=== PATIENT | female | born 1995 | race Caucasian/White ===

== ENCOUNTER 2021-08-24 14:40 | Inpatient (IN) | payer OTHER ==
[~2021-08-24] VITALS: Ht 162.6 cm; Wt 95.3 kg
[~2021-08-24 14:40] MED LIST: COLACE 100MG C100 MG PO; FEROSUL325 MG PO; IBUPROFEN600 MG PO; LORTAB 5-325 M1 EACH PO; PRENATAL VITAM1 EAC6 PO
[2021-08-24] MEDS ORDERED: OMEPRAZOLE20 MG PO (15:46)
[2021-08-24] MEDS ORDERED: PRENATAL TABLE1 EAC1 PO (15:48)
[2021-08-24 15:57] LABS: HEMOGLOBIN 10.7 gm/dl (12.3-15.3); RED BLOOD COUNT 4.46 M/UL (4.00-5.10); WHITE BLOOD COUNT 13.1 K/UL (4.5-11.0)
[2021-08-24] MEDS ORDERED: IBUPROFEN800 MG PO (17:36)
[2021-08-24] MEDS ORDERED: HEMOCYTE324 MG PO (17:36)
[2021-08-24] MEDS ORDERED: COLACE100 MG PO (17:36)
[2021-08-25 07:13] LABS: HEMOGLOBIN 8.9 gm/dl (12.3-15.3)
== END 2021-08-26 15:28 | disposition home or self-care (01) | DRG 806 ==
LOC: GENOP 14:40 → OB 14:56
PROVIDERS: ADMIT Obstetrics & Gynecology
PROC: 10E0XZZ Delivery of Products of Conception, External Approach (ICD-10-PCS; principal; 2021-08-24)
PROC: 0W8NXZZ Division of Female Perineum, External Approach (ICD-10-PCS; 2021-08-24)
PROC: 4A1HXCZ Monitoring of Products of Conception, Cardiac Rate, External Approach (ICD-10-PCS; 2021-08-24)
PROC: 3E0234Z Introduction of Serum, Toxoid and Vaccine into Muscle, Percutaneous Approach (ICD-10-PCS; 2021-08-24)
DX: O99.344 Other mental disorders complicating childbirth (principal); D62 Acute posthemorrhagic anemia; Z37.0 Single live birth; Z3A.40 40 weeks gestation of pregnancy; Z20.822 Contact with and (suspected) exposure to COVID-19; F41.9 Anxiety disorder, unspecified; F32.A Depression, unspecified; Z83.3 Family history of diabetes mellitus; Z82.49 Family history of ischemic heart disease and other diseases of the circulatory system; Z80.9 Family history of malignant neoplasm, unspecified; Z86.73 Personal history of transient ischemic attack (TIA), and cerebral infarction without residual deficits; O90.81 Anemia of the puerperium; Z23 Encounter for immunization; O70.9 Perineal laceration during delivery, unspecified
CPT/HCPCS: 51702; 81001; 85014; 85018; 85025; 90471; 90715; J0696; J2590; J3010; U0002

== ENCOUNTER 2021-10-14 19:44 | Emergency (ER) | payer OTHER ==
[~2021-10-14 19:44] MED LIST changes: +COLACE100 MG PO; +HEMOCYTE324 MG PO; +IBUPROFEN800 MG PO; +OMEPRAZOLE20 MG PO; +PRENATAL TABLE1 EAC1 PO
[2021-10-14 20:51] LABS: HEMOGLOBIN 11.7 gm/dl (12.3-15.3); RED BLOOD COUNT 4.83 M/UL (4.00-5.10); WHITE BLOOD COUNT 11.2 K/UL (4.5-11.0)
[2021-10-14 21:15] LABS: BUN/CREATININE RATIO 20 (0-10)
[2021-10-15] MEDS ORDERED: ZOFRAN ODT 4 MG4 MG PO (04:14)
== END 2021-10-15 05:00 | disposition home or self-care (01) ==
LOC: ER1 19:44
PROVIDERS: Physician Assistant
DX: K29.70 Gastritis, unspecified, without bleeding (principal); K80.20 Calculus of gallbladder without cholecystitis without obstruction; K21.9 Gastro-esophageal reflux disease without esophagitis; E11.9 Type 2 diabetes mellitus without complications
CPT/HCPCS: 71045; 80053; 81001; 82150; 82550; 82553; 83690; 84484; 84703; 85025; 87086; 96374; 96375; 99284; C9113; J1170; J2405; Q9967

== ENCOUNTER → 2021-11-10 | Day surgery (SDC) | payer OTHER ==
[~2021-11-10] MED LIST changes: +HYDROCODON-ACE1 EAC4 PO; +OMEPRAZOLE40 MG PO; +ZOFRAN ODT 4 MG4 MG PO
== END | disposition home or self-care (01) ==
LOC: OR 07:30
DX: K80.64 Calculus of gallbladder and bile duct with chronic cholecystitis without obstruction (principal); Z20.822 Contact with and (suspected) exposure to COVID-19
CPT/HCPCS: 84703; C1729; J0690; J1100; J1170; J1885; J2250; J2405; J2704; J3010; J7030; J7120